=== PATIENT | male | born 1980 | race Hispanic/Latino ===

== ENCOUNTER 2018-04-07 19:54 | Emergency (ER) | payer MEDICAID ==
--- NOTE | 2018-04-07 20:06 | ED PDOC ---
Arrival/HPI - General Time Seen by Provider: 04/07/18 20:05 Historian: Patient - History of Present Illness Narrative History of Present Illness (Text): 04/07/18 20:05 37 y/o male, no significant pmh, nkda, c/o lt. lower molar pain x 2 days with no fall or trauma. Aching pain, aggravated by chewing and biting, unable to see the dentist, no facial swelling, no difficulty swallowing, no night sweat, no rash, no numbness or tingling, no palpitation, no other medical or psychological complaints. Past Medical History - Provider Review Nursing Documentation Reviewed: Yes Family/Social History - Physician Review Nursing Documentation Reviewed: Yes Family/Social History: Unknown Family HX Allergies/Home Meds Allergies/Adverse Reactions: Allergies No Known Allergies Allergy (Verified 04/07/18 20:30) Review of Systems - Review of Systems Constitutional: absent: Fatigue, Fevers Eyes: absent: Vision Changes ENT: Other (+dental pain). absent: Hearing Changes Respiratory: absent: SOB, Cough Cardiovascular: absent: Chest Pain, Syncope Gastrointestinal: absent: Abdominal Pain, Diarrhea, Nausea, Vomiting Musculoskeletal: absent: Arthralgias, Back Pain Skin: absent: Rash, Pruritis, Skin Lesions Psychiatric: absent: Anxiety, Depression, Suicidal Ideation Physical Exam Vital Signs Reviewed: Yes Vital Signs Temp Pulse Resp BP Pulse Ox 04/07/18 20:55 56 L 18 138/86 100 04/07/18 20:12 98.3 F 83 17 123/86 99 Temperature: Afebrile Blood Pressure: Normal Pulse: Regular Respiratory Rate: Normal Appearance: Positive for: Well-Appearing, Non-Toxic, Comfortable Pain Distress: Moderate Mental Status: Positive for: Alert and Oriented X 3 - Systems Exam Head: Present: Atraumatic, Normocephalic Pupils: Present: PERRL Extroacular Muscles: Present: EOMI Conjunctiva: Present: Normal Mouth: Present: Moist Mucous Membranes, Other (visible newly erupted wisdom tooth noted on the left lower molar region, visible dental caries noted on the left lower dental region. ) Pharnyx: Present: Normal, Other (no chin or tongue swelling). No: ERYTHEMA, EXUDATE, TONSILS ENLARGED Nose (External): Present: Atraumatic. No: Abrasion, Contusion, Laceration Nose (Internal): Present: Normal Inspection, No Active Bleeding. No: Rhinorrhea Neck: Present: Normal Range of Motion Respiratory/Chest: Present: Clear to Auscultation, Good Air Exchange. No: Respiratory Distress, Accessory Muscle Use Cardiovascular: Present: Regular Rate and Rhythm, Normal S1, S2. No: Murmurs Abdomen: No: Tenderness, Distention, Peritoneal Signs Back: Present: Normal Inspection Upper Extremity: Present: Normal Inspection. No: Cyanosis, Edema Lower Extremity: Present: Normal Inspection. No: Edema Neurological: Present: GCS=15, CN II-XII Intact, Speech Normal, Motor Func Grossly Intact, Gait Normal, Memory Normal Skin: Present: Warm, Dry, Normal Color. No: Rashes Psychiatric: Present: Alert, Oriented x 3, Normal Insight, Normal Concentration Medical Decision Making ED Course and Treatment: 04/07/18 20:30 -toradol/amoxicillin/percocet -Observe and reassess 04/07/18 21:03 -Pt. feels much better, request to be discharged home. -Discharge home with amoxicillin, motrin, stay hydrated, follow up with your own pmd and dentist within 2 days, return to the ER for any new or worsening signs or symptoms. - Medication Orders Current Medication Orders: Discontinued Medications Amoxicillin (Amoxil 500 Mg Cap) 500 mg PO STAT STA PRN Reason: Protocol Stop: 04/07/18 20:32 Last Admin: 04/07/18 20:50 Dose: 500 mg Ketorolac Tromethamine (Toradol) 60 mg IM STAT STA Stop: 04/07/18 20:32 Last Admin: 04/07/18 20:50 Dose: 60 mg MAR Pain Assessment Document 04/07/18 20:50 GMD (Rec: 04/07/18 20:50 GMD [id number]) Pain Reassessment Is this a pain reassessment? No IM Administration Charges Document 04/07/18 20:50 GMD (Rec: 04/07/18 20:50 GMD [id number]) Injection Site MAR Injection Site Left Deltoid Charges for Administration # of IM Administrations 1 Oxycodone/Acetaminophen (Percocet 5/325 Mg Tab) 1 tab PO STAT STA Stop: 04/07/18 20:32 Last Admin: 04/07/18 20:50 Dose: 1 tab MAR Pain Assessment Document 04/07/18 20:50 GMD (Rec: 04/07/18 20:50 GMD [id number]) Pain Reassessment Is this a pain reassessment? No - PA / [employer] / Resident Statement /DO has reviewed & agrees with the documentation as recorded. Disposition/Present on Arrival - Present on Arrival Any Indicators Present on Arrival: No History of DVT/PE: No History of Uncontrolled Diabetes: No Urinary Catheter: No History of Decub. Ulcer: No - Disposition Have Diagnosis and Disposition been Completed?: Yes Diagnosis: Dental caries, Pain, dental Disposition: HOME/ ROUTINE Disposition Time: 20:33 Patient Plan: Discharge Patient Problems: Current Active Problems Problem Status Onset Dental caries Acute Pain, dental Acute Condition: IMPROVED Additional Instructions: -Discharge home with amoxicillin, motrin, stay hydrated, follow up with your own pmd and dentist within 2 days, return to the ER for any new or worsening signs or symptoms. Prescriptions: Amoxicillin 500 mg PO TID #30 tab Ibuprofen [Motrin Tab] 600 mg PO QID #30 tab Referrals: [facility] at [facility] [place] [Outside] - Follow up with primary Forms: WORK NOTE
[2018-04-07 20:30] VITALS: TEMP 98.3
[2018-04-07] MEDS ORDERED: Oxycodone/Acetaminophen 5/325 mg Tab PO STA (20:31)
[2018-04-07 20:55] VITALS: BP 138/86; PULSE 56; RESP 18; O2SAT 100
== END 2018-04-07 21:13 | disposition home or self-care (01) ==
LOC: ED 19:54
DX: K02.9 Dental caries, unspecified (principal); K08.89 Other specified disorders of teeth and supporting structures
CPT/HCPCS: 96372; 99283; J1885